=== PATIENT | female | born 1945 | race Caucasian/White ===

== ENCOUNTER → 2019-10-31 | Outpatient (CLI) | payer MEDICARE, MEDICAID ==
--- NOTE | 2019-10-31 15:51 | MAM ---
EXAM DESCRIPTION: 3D Diagnostic, Bilateral (accession [id number]), Breast,Right (accession [id number]): Ultrasound CLINICAL HISTORY: 74 yearsFemaleLUMP IN RIGHT BREAST also pain in the lateral breast abutting the axilla. No personal history of breast cancer. Remote family history of breast cancer. Menarche age 11. Childbirth age 25. Menopause age 55. Benign right breast biopsy. No HRT Lifetime risk of developing breast cancer (Tyrer-Cuzick model)(%): 5.4. COMPARISON: None available. Baseline study at this facility. TECHNIQUE: Bilateral LM, CC, and MLO projection full-field images, digital tomosynthesis technique. Bilateral 2-D digital full-field images: , LM, CC, and MLO projection. CAD not available.. Transcutaneous scanning of the region of interest lateral right breast and axilla, utilizing sidhu-scale and Doppler modes. Scanning performed by the cheese maker ; observation by Dr. Romero. FINDINGS: The breast parenchymal density pattern is: Scattered areas of fibroglandular density. No skin thickening or nipple retraction bilateral axillary lymph nodes. Bilateral mole markers. Right axillary calcifications, more than left with bilateral scattered solitary microcalcifications. Vascular calcification on the right. No new focal, stellate mass or density, focal asymmetry , and no suspicious microcalcifications bilaterally. Ultrasound: Scanning of the upper outer quadrant of the right breast in the axillary tail. No dominant solid mass or distinct cyst. No parenchymal edema or large calcifications. No overlying skin changes. IMPRESSION: Benign exam. BIRAD CATEGORY: 2 BENIGN FINDINGS. RECOMMENDATIONS: FOLLOW UP: Return to routine digital bilateral mammographic screening, one year interval from October 2019. Written communication explaining the IMPRESSION and follow-up, will be mailed to the patient and referring health care provider. The FINDINGS and the FOLLOW-UP plan were reviewed in person with the patient after the examination. According to the [employer], yearly mammograms are recommended starting at age 40 and continuing as long as a woman is in good health. Any breast change noted on a breast self-exam should be reported promptly to the patient's healthcare provider. Breast MRI is recommended for women with an approximately 20-25% or greater lifetime risk of breast cancer, including women with a strong family history of breast or ovarian cancer and women who have been treated for Hodgkin's disease. A negative mammographic report should not delay tissue diagnosis in patients with significant clinical history or physical findings. Extremely dense breast tissue limits the sensitivity of digital mammography. Electronically signed by: Lennox Romero MD 10/31/2019 3:49 PM [facility]
== END ==
LOC: MAMMO 09:23
PROVIDERS: ATTEND Emergency Medicine
DX: N63.10 Unspecified lump in the right breast, unspecified quadrant (principal)
CPT/HCPCS: 76641; 77066; G0279

== ENCOUNTER 2020-08-05 10:23 | Emergency (ER) | payer MEDICARE, MEDICAID ==
--- NOTE | 2020-08-05 10:38 | ED.PDOC ---
History of Present Illness - General Time Seen by Provider: 08/05/20 10:27 Source: patient, RN notes reviewed, Vital Signs reviewed, old records Exam Limitations: no limitations - History of Present Illness Initial Comments: 75 yo F with hx of HTN comes in with c/c of feeling shaky for one hour. states she was at [employer] when it started. no chest pain, short of breath, dizziness, nausea, vomiting. thinks it her blood sugar, as she is a pre-diabetic. Was in ER yesterday and dx with restless leg syndrome. She had a ham, cheese, egg breakfast biscuit this morning. Allergies/Adverse Reactions: Allergies Codeine Allergy (Verified 08/05/20 11:27) Home Medications: Ambulatory Orders Lisinopril & Hydrochlorothiazi [Lisinopril/Hydrochlorothi 20-25 mg] 25 mg PO BID 08/05/20 Review of Systems - Review of Systems Constitutional: Denies: chills, fever, malaise EENTM: Denies: blurred vision, double vision, throat swelling Respiratory: Denies: cough, short of breath, wheezing Cardiology: Denies: chest pain, palpitations, syncope Gastrointestinal/Abdominal: Denies: abdominal pain, nausea, vomiting Genitourinary: Denies: discharge, dysuria, hematuria Musculoskeletal: Denies: back pain, muscle pain, muscle stiffness, neck pain Skin: Denies: rash Neurological: States: tremors. Denies: headache, numbness, paresthesia, seizure, tingling, weakness Endocrine: Denies: increased hunger, increased thirst, increased urine, unexplained weight gain, unexplained weight loss Hematologic/Lymphatic: Denies: blood clots, easy bleeding, easy bruising Past Medical History (General) - Patient Medical History Hx Seizures: No Hx Stroke: No Hx Dementia: No Hx Asthma: No Hx of COPD: No Hx Cardiac Disorders: No Hx Congestive Heart Failure: No Hx Pacemaker: No Hx Hypertension: Yes Family Medical History - Family History Mother Family History: Unknown Living Status: Physical Exam - Physical Exam General Appearance: Alert, Comfortable, No apparent distress, Well Developed, Well Groomed, Well Hydrated, Well Nourished Eye Exam: bilateral normal Ears, Nose, Throat: hearing grossly normal, normal ENT inspection, normal pharynx Neck: non-tender, full range of motion, supple, normal inspection Respiratory: chest non-tender, lungs clear, normal breath sounds, no respiratory distress, no accessory muscle use Cardiovascular/Chest: normal peripheral pulses, regular rate, rhythm, no edema, no gallop, no JVD, no murmur Peripheral Pulses: radial,right: 2+, radial,left: 2+ Gastrointestinal/Abdominal: normal bowel sounds, non tender, soft, no organomegaly Rectal Exam: deferred Back Exam: normal inspection, no CVA tenderness, no vertebral tenderness Extremity: normal range of motion, non-tender, normal inspection, no pedal edema, no calf tenderness, normal capillary refill 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 Patient resting comfortably. Asking to go home because she's hungry. The data reviewed when caring for this patient included: nurse notes, prior records, etc. The history and assessments from nurses notes were reviewed and considered, and the patient's home medication list was also reviewed and considered. My assessment and the results of testing completed here in the ED were discussed with the patient/friend. All questions were answered, and they express understanding of my assessment and the plan. They have been instructed to return if their symptoms worsen, and have been asked to follow up with their primary care physician to recheck today's presenting complaint. Strict return precautions given. Recommend magnesium oxide for leg cramps. Increase K in diet. patient discharged home with friend in stable condition Bekah Walker DO #[id number] 08/05/20 13:28 - Results/Orders Results/Orders: 08/05/20 10:45 EKG STAT 08/05/20 11:54 URINE CULTURE W/COLONY COUNT Stat Laboratory Results WBC 6.7 K/mm3 (4.8-10.8) 08/05/20 11:16 RBC 3.72 M/mm3 (4.20-5.40) L 08/05/20 11:16 Hgb 12.4 gm/dL (12.0-16.0) 08/05/20 11:16 Hct 35.8 % (36.0-47.0) L 08/05/20 11:16 MCV 96.1 fl (81.0-99.0) 08/05/20 11:16 MCH 33.3 pg (27.0-31.0) H 08/05/20 11:16 MCHC 34.7 g/dL (33.0-37.0) 08/05/20 11:16 RDW 12.3 % (11.5-14.5) 08/05/20 11:16 Plt Count 171 K/mm3 (130-400) 08/05/20 11:16 MPV 8.5 fl (7.40-10.4) 08/05/20 11:16 Absolute Neuts (auto) 3.30 K/uL (1.8-6.8) 08/05/20 11:16 Absolute Lymphs (auto) 2.80 K/uL (1.0-3.4) 08/05/20 11:16 Absolute Monos (auto) 0.50 K/uL (0.2-0.8) 08/05/20 11:16 Absolute Eos (auto) 0.00 K/uL (0.0-0.4) 08/05/20 11:16 Absolute Basos (auto) 0.00 K/uL (0.0-0.1) 08/05/20 11:16 Neutrophils % 49.1 % (42.0-78.0) 08/05/20 11:16 Lymphocytes % 42.1 % (20.0-50.0) 08/05/20 11:16 Monocytes % 7.8 % (2.0-9.0) 08/05/20 11:16 Eosinophils % 0.4 % (1.0-5.0) L 08/05/20 11:16 Basophils % 0.6 % (0.0-2.0) 08/05/20 11:16 Sodium 138 mmol/L (135-145) 08/05/20 11:16 Potassium 3.3 mmol/L (3.6-5.0) L 08/05/20 11:16 Chloride 104 mmol/L (101-111) 08/05/20 11:16 Carbon Dioxide 21 mmol/L (21-31) 08/05/20 11:16 Anion Gap 16.3 (12-18) 08/05/20 11:16 BUN 31 mg/dL (7-18) H 08/05/20 11:16 Creatinine 1.28 mg/dL (0.6-1.3) 08/05/20 11:16 BUN/Creatinine Ratio 24.2 (10-20) H 08/05/20 11:16 POC Glucose 92 mg/dL (70-105) 08/05/20 11:16 Random Glucose 93 mg/dL (70-105) 08/05/20 11:16 Serum Osmolality 281.9 mOsm/L (275-295) 08/05/20 11:16 Calcium 8.8 mg/dL (8.4-10.2) 08/05/20 11:16 Total Bilirubin 0.7 mg/dL (0.2-1.0) 08/05/20 11:16 AST 39 IU/L (10-42) 08/05/20 11:16 ALT 23 IU/L (10-60) 08/05/20 11:16 Alkaline Phosphatase 80 IU/L (42-121) 08/05/20 11:16 Troponin I < 0.02 ng/mL (0.01-0.05) 08/05/20 11:16 Serum Total Protein 6.8 gm/dL (6.4-8.2) 08/05/20 11:16 Albumin 3.7 g/dl (3.2-5.5) 08/05/20 11:16 Globulin 3.1 gm/dL (2.3-3.5) 08/05/20 11:16 Albumin/Globulin Ratio 1.2 (1.1-1.9) 08/05/20 11:16 TSH 0.44 uIU/mL (0.34-5.60) 08/05/20 11:16 Urine Color Yellow (Yellow) 08/05/20 11:54 Urine Appearance Clear (Clear) 08/05/20 11:54 Urine pH 5.5 (4.5-7.8) 08/05/20 11:54 Ur Specific [place] 1.015 (1.005-1.030) 08/05/20 11:54 Urine Protein Negative mg/dL 08/05/20 11:54 Urine Glucose (UA) Negative mg/dL (Negative) 08/05/20 11:54 Urine Ketones Negative mg/dL (NEGATIVE) 08/05/20 11:54 Urine Blood Negative (Negative) 08/05/20 11:54 Urine Nitrite Negative 08/05/20 11:54 Urine Bilirubin Negative (NEGATIVE) 08/05/20 11:54 Urine Urobilinogen 0.2 mg/dL (0.2-1.0) 08/05/20 11:54 Ur Leukocyte Esterase Small (Negative) H 08/05/20 11:54 Urine RBC 0 /hpf 08/05/20 11:54 Urine WBC 5-10 /hpf H 08/05/20 11:54 Ur Epithelial Cells 3-5 /hpf 08/05/20 11:54 Urine Bacteria Rare 08/05/20 11:54 - EKG/XRAY/CT EKG: Sinus, RBBB - no stemi, no prior for comparision. CT: head: no acute pathology Departure - Departure Clinical Impression: Hypokalemia ICD-10 Supporting Text: RBBB Time of Disposition: 13:18 Disposition: Discharge to Home or Self Care Departure Forms: ED Discharge - Pt. Copy, Patient Portal Self Enrollment Instructions: Essential Tremor, Hypokalemia (DC), High Potassium Diet Referrals: BRIANA CASTLE [Primary Care Provider] - 1-2 Days Home Medications: Ambulatory Orders Lisinopril & Hydrochlorothiazi [Lisinopril/Hydrochlorothi 20-25 mg] 25 mg PO BID 08/05/20 Additional Instructions: Magnesium oxide 400 mg daily for leg cramps
[2020-08-05 13:14] VITALS: O2SAT 97
--- NOTE | 2020-08-05 13:16 | CT ---
EXAM: CT HEAD WITHOUT CONTRAST HISTORY: weakness. TECHNIQUE: CT of the head was obtained without contrast. The CT exam was performed using one or more of the following dose reduction techniques: Automated exposure control, adjustment of the mA and/or kV according to patient size, and/or use of iterative reconstruction technique. COMPARISON: Head CT from 09/26/2011. FINDINGS: Parenchyma: No mass, acute hemorrhage or CT evidence of large acute vascular territory insult. Ventricles: Normal in size and configuration. No hydrocephalus. Extra-axial spaces: No masses or fluid collections. Dural sinuses: No abnormal densities. Paranasal sinuses/Mastoid air cells: Clear. Scalp/Skull: No abnormalities. IMPRESSION: No acute intracranial abnormality. Electronically signed by: Jay Villavicencio MD 08/05/2020 1:15 PM CDT
[2020-08-05 13:36] VITALS: BP 141/96; TEMP 96.8
== END 2020-08-05 13:35 | disposition home or self-care (01) ==
LOC: ER 10:23
DX: E87.6 Hypokalemia (principal); I45.10 Unspecified right bundle-branch block; I10 Essential (primary) hypertension; R73.03 Prediabetes; G25.81 Restless legs syndrome; Z79.899 Other long term (current) drug therapy; Z88.5 Allergy status to narcotic agent